=== PATIENT | male | born 1990 | race American Indian/Alaskan Native ===

== ENCOUNTER 2016-10-30 18:33 | Emergency (ER) | payer OTHER ==
[2016-10-30 19:17] VITALS: BP 127/81
--- NOTE | 2016-10-31 11:30 | XRay Report ---
RIGHT HAND RADIOGRAPHS: INDICATION: Injury. COMPARISON: 10/10/2014. FINDINGS: AP, lateral and oblique right hand radiographs demonstrate an acute nondisplaced fourth metacarpal fracture lucency disrupting the medial and dorsal cortices, though the lateral cortex appears intact on the frontal view. Overlying soft tissue swelling noted. No joint involvement. Fifth metacarpal head healed deformity. Normal remainder exam. CONCLUSION: 1. Acute nondisplaced fracture of the right fourth metacarpal shaft with overlying soft tissue swelling, as described above. 2. Interval healed fifth metacarpal head fracture deformity. Thank you for the opportunity to participate in this patient's care.
--- NOTE | 2016-11-01 15:48 | ED Elopement Review ---
ED Pt Elopement review - Call Back decision Pt Call Back Decision: Pt to F/U with PMD (pos hand fx see Rodrigues)
== END 2016-10-30 23:30 | disposition left against medical advice (07) ==
LOC: ED 18:33
DX: S69.91XA Unspecified injury of right wrist, hand and finger(s), initial encounter (principal); F17.200 Nicotine dependence, unspecified, uncomplicated; W26.9XXA Contact with unspecified sharp object(s), initial encounter; Y93.89 Activity, other specified; Y99.9 Unspecified external cause status; Y92.89 Other specified places as the place of occurrence of the external cause; Z53.21 Procedure and treatment not carried out due to patient leaving prior to being seen by health care provider